=== PATIENT | female | born 2000 | race Two or more races ===

== ENCOUNTER 2023-12-30 12:39 | Inpatient (IN) | payer OTHER ==
[~2023-12-30] VITALS: Ht 170.2 cm; Wt 135.0 kg
[2023-12-30] VITALS (7 sets, daily range): BP systolic 114–127; BP diastolic 43–58; PULSE 91–102; RESP 12–24; TEMP 98.4–99.6; O2SAT 98–99
[2023-12-30 13:53] LABS: Basophils # (auto) 0 10 ^3/uL (0-0.2); Eosinophils # (auto) 0.1 10 ^3/uL (0-0.8); Monocytes # (auto) 0.4 10 ^3/uL (0-1.3); Monocytes % (auto) 7.7 % (0.0-12.0)
[2023-12-30 13:57] LABS: Basophils % (auto) 0.8 % (0.0-2.0); Eosinophils % (auto) 1.5 % (0.0-7.0); Hematocrit 19.8 % (36.0-46.0); Lymphocytes # (auto) 1.6 10 ^3/uL (0.4-5.4); Lymphocytes % (auto) 30.7 % (10.0-50.0); Mean Corpuscular Hemoglobin 15.7 pg (28.0-32.0); Neutrophils # (auto) 3.1 10 ^3/uL (1.6-8.6); Neutrophils % (auto) 59.3 % (37.0-80.0); Nucleated Red Blood Cells % 0.4 %; Platelet Count (auto) 358 10^3/uL (140-450); Red Blood Cells 3.53 10^6/uL (4.0-5.20); White Blood Cell 5.2 10^3/uL (4.4-10.8)
[2023-12-30 14:05] LABS: Urine Bacteria FEW /hpf (None Seen); Urine Blood Negative /uL (Negative); Urine Clarity Turbid (Clear); Urine Color Yellow (Yellow); Urine Hyaline Cast FEW /lpf (0 - 2); Urine Mucus FEW (None Seen); Urine Protein, UAD TRACE (Negative); Urine Specific Gravity 1.018 (1.001-1.035); Urine Urobilinogen Normal (Negative); Urine WBC 9 /hpf (0 - 5)
[2023-12-30 14:08] LABS: Hemoglobin 5.5 g/dL (12.2-16.2)
[2023-12-30 14:18] LABS: Alanine Aminotransferase 28 U/L (7-40); Albumin 4.3 g/dL (3.2-4.8); Alkaline Phosphatase 94 U/L (46-116); Anion Gap 7 (5-15); Aspartate Aminotransferase 14 U/L (13-40); BUN/Creatinine Ratio 15.7 (10.0-20.0); Blood Urea Nitrogen 11 mg/dL (9-23); Calcium 9.3 mg/dL (8.7-10.4); Carbon Dioxide 26 mmol/L (20-30); Chloride 106 mmol/L (98-107); Glucose 106 mg/dL (74-106); Sodium 139 mmol/L (136-145)
[2023-12-30 14:19] LABS: Bilirubin, Total 0.6 mg/dL (0.2-1.0)
[2023-12-30 14:40] LABS: Hypochromia Marked; Stomatocytes Few
[2023-12-30 14:42] LABS: Platelet Estimate Adequate; Polychromasia Slight
[2023-12-30] MEDS: SODIUM CHLORIDE 0.9% 1,000 ML IV ONE (15:29)
[2023-12-30] MEDS: FERROUS SULFATE 325mg EC TAB PO ONE (15:32)
[2023-12-30 15:38] LABS: % Iron Saturation 5.1 % (15-50)
[2023-12-30] MEDS ORDERED: ONDANSETRON HCL 4 MG/2 ML VIAL IV PRN (16:15)
[2023-12-30] MEDS ORDERED: ACETAMINOPHEN 325 MG TAB PO PRN (16:15)
[2023-12-30] MEDS ORDERED: DOCUSATE SOD 100 MG CAP PO PRN (16:15)
[2023-12-30] MEDS: FAMOTIDINE (10MG/ML) 2ML VL IV SCH (16:48)
[2023-12-30] MEDS: SODIUM CHLOR 0.9% PF (SALINE LOCK) 10ML VIAL/SYR IV SCH (22:34)
[2023-12-31] VITALS (12 sets, daily range): BP systolic 113–135; BP diastolic 42–70; PULSE 75–104; RESP 16–21; TEMP 97.9–99.6; O2SAT 95–99
[2023-12-31] MEDS ORDERED: NORG1TAB PO (00:33)
[2023-12-31] MEDS ORDERED: ONDA16TA PO (00:33)
[2023-12-31 09:48] LABS: Basophils # (auto) 0 10 ^3/uL (0-0.2); Eosinophils # (auto) 0.1 10 ^3/uL (0-0.8); Lymphocytes # (auto) 1.6 10 ^3/uL (0.4-5.4); Lymphocytes % (auto) 28.2 % (10.0-50.0); Monocytes # (auto) 0.3 10 ^3/uL (0-1.3); Neutrophils # (auto) 3.7 10 ^3/uL (1.6-8.6)
[2023-12-31 09:50] LABS: Basophils % (auto) 0.8 % (0.0-2.0); Eosinophils % (auto) 1.7 % (0.0-7.0); Hematocrit 22.1 % (36.0-46.0); Mean Corpuscular Hemoglobin 17.2 pg (28.0-32.0); Mean Corpuscular Hgb Conc. 28.9 g/dL (32.0-36.0); Mean Corpuscular Volume 59.7 fL (80.0-100.0); Monocytes % (auto) 5.7 % (0.0-12.0); Neutrophils % (auto) 63.6 % (37.0-80.0); Nucleated Red Blood Cells % 0.5 %; Platelet Count (auto) 305 10^3/uL (140-450); Red Blood Cells 3.71 10^6/uL (4.0-5.20); White Blood Cell 5.7 10^3/uL (4.4-10.8)
[2023-12-31 09:54] LABS: Red Cell Distribution Width 23.9 % (11.8-14.3)
[2023-12-31 09:55] LABS: Hemoglobin 6.4 g/dL (12.2-16.2)
[2023-12-31 10:08] LABS: Alanine Aminotransferase 26 U/L (7-40); Albumin 4.4 g/dL (3.2-4.8); Alkaline Phosphatase 92 U/L (46-116); Anion Gap 7 (5-15); Aspartate Aminotransferase 19 U/L (13-40); BUN/Creatinine Ratio 12.3 (10.0-20.0); Bilirubin, Total 0.8 mg/dL (0.2-1.0); Blood Urea Nitrogen 9 mg/dL (9-23); Calcium 9.5 mg/dL (8.7-10.4); Carbon Dioxide 25 mmol/L (20-30); Chloride 105 mmol/L (98-107); Cholesterol 132 mg/dL (< 200); Glucose 108 mg/dL (74-106); LDL Cholesterol 85 mg/dL (< 100); Potassium 3.6 mmol/L (3.5-5.1); Sodium 137 mmol/L (136-145); Triglycerides 85 mg/dL (< 150)
[2023-12-31 10:11] LABS: HDL Cholesterol 33 mg/dL (40-59)
[2023-12-31 10:43] LABS: Folate (Folic Acid) 18.42 ng/mL (>5.38)
[2023-12-31 10:45] LABS: Anisocytosis Slight; Platelet Estimate Adequate
[2023-12-31 10:46] LABS: Hypochromia Moderate; Tear Drop Cells FEW
[2024-01-01] VITALS (10 sets, daily range): BP systolic 110–140; BP diastolic 43–76; PULSE 71–97; RESP 16–20; TEMP 97.5–98.9; O2SAT 95–96
[2024-01-01 01:16] LABS: Hematocrit 24.7 % (36.0-46.0)
[2024-01-01 01:18] LABS: Hemoglobin 6.9 g/dL (12.2-16.2)
[2024-01-01] MEDS: IRON SUCROSE COMPLEX 100 ML IV SCH (07:41)
[2024-01-01 10:37] LABS: Basophils # (auto) 0 10 ^3/uL (0-0.2); Basophils % (auto) 0.6 % (0.0-2.0); Eosinophils # (auto) 0.2 10 ^3/uL (0-0.8); Mean Corpuscular Hemoglobin 19.4 pg (28.0-32.0); Mean Corpuscular Hgb Conc. 29.7 g/dL (32.0-36.0); Neutrophils # (auto) 4.1 10 ^3/uL (1.6-8.6)
[2024-01-01 10:38] LABS: Eosinophils % (auto) 3.2 % (0.0-7.0); Hematocrit 26.8 % (36.0-46.0); Hemoglobin 7.9 g/dL (12.2-16.2); Lymphocytes # (auto) 1.5 10 ^3/uL (0.4-5.4); Mean Corpuscular Volume 65.4 fL (80.0-100.0); Monocytes # (auto) 0.4 10 ^3/uL (0-1.3); Neutrophils % (auto) 65.2 % (37.0-80.0); Nucleated Red Blood Cells % 0.2 %; Platelet Count (auto) 288 10^3/uL (140-450); White Blood Cell 6.3 10^3/uL (4.4-10.8)
[2024-01-01 10:56] LABS: Red Cell Distribution Width 31.9 % (11.8-14.3)
[2024-01-01 10:58] LABS: Alanine Aminotransferase 26 U/L (7-40); Albumin 4.1 g/dL (3.2-4.8); Alkaline Phosphatase 89 U/L (46-116); Anion Gap 6 (5-15); Aspartate Aminotransferase 22 U/L (13-40); BUN/Creatinine Ratio 15.5 (10.0-20.0); Blood Urea Nitrogen 9 mg/dL (9-23); Calcium 9.1 mg/dL (8.7-10.4); Carbon Dioxide 24 mmol/L (20-30); Chloride 107 mmol/L (98-107); Glucose 107 mg/dL (74-106); Magnesium 2.1 mg/dL (1.6-2.6); Sodium 137 mmol/L (136-145)
[2024-01-01 10:59] LABS: Bilirubin, Total 0.7 mg/dL (0.2-1.0); Total Protein 7.1 g/dL (5.7-8.2)
== END 2024-01-01 15:05 | disposition home or self-care (01) | DRG 812 ==
LOC: ER 12:58 → OVERFLOW 16:09 → CENTRAL 23:51
PROVIDERS: ADMIT Internal Medicine Geriatric Medicine; ATTEND Internal Medicine Geriatric Medicine
PROC: 30233N1 Transfusion of Nonautologous Red Blood Cells into Peripheral Vein, Percutaneous Approach (ICD-10-PCS; principal; 2023-12-30)
DX: D64.9 Anemia, unspecified (principal); Z68.42 Body mass index [BMI] 45.0-49.9, adult; N92.6 Irregular menstruation, unspecified; E66.01 Morbid (severe) obesity due to excess calories
CPT/HCPCS: 36415; 76856; 80053; 80061; 81001; 81025; 82306; 82607; 82728; 82746; 83540; 83550; 83615; 83735; 84443; 85014; 85018; 85025; 86850; 86900; 86901; 86920; 96374; 96375; 99291; G0378; J1756; J2405; J3490